=== PATIENT | male | born 2000 | race Caucasian/White ===

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

== ENCOUNTER 2022-03-15 07:29 | Emergency (ER) | payer BC, OTHER ==
[~2022-03-15] VITALS: Ht 180.3 cm; Wt 118.6 kg
[2022-03-15 07:32] VITALS: BP 139/78
[2022-03-15] MEDS ORDERED: amox tr/potassium clavulanate 875/125mg TAB PO ONE (09:25)
[2022-03-15] MEDS ORDERED: ketorolac trometh inj. 60 MG/2 ML VIAL IM ONE (09:25)
[2022-03-15] MEDS ORDERED: IBUP-1986 PO (09:30)
[2022-03-15] MEDS ORDERED: AMOX-117 PO (09:30)
== END 2022-03-15 09:56 | disposition home or self-care (01) ==
LOC: ER 07:29
DX: H65.193 Other acute nonsuppurative otitis media, bilateral (principal); F17.200 Nicotine dependence, unspecified, uncomplicated; I10 Essential (primary) hypertension; F41.9 Anxiety disorder, unspecified; Z79.899 Other long term (current) drug therapy
CPT/HCPCS: 96372; 99283; J1885

== ENCOUNTER 2022-07-03 13:33 | Emergency (ER) | payer OTHER ==
[~2022-07-03] VITALS: Ht 182.9 cm; Wt 128.4 kg
[~2022-07-03 13:33] MED LIST changes: +IBUP-1986 PO
[2022-07-03 14:11] LABS: BASOPHILS % (AUTO) 0.6 % (0-1); EOSINOPHILS % (AUTO) 0.1 % (0-6); HEMATOCRIT 50.1 % (42.0-52.0); HEMOGLOBIN 17.5 g/dl (14.0-17.9); LYMPHOCYTES # (AUTO) 1.9 X10'3 (1.1-4.8); LYMPHOCYTES % (AUTO) 40.7 % (21-51); MEAN CORPUSCULAR HEMOGLOBIN 30.1 PG (27.0-31.0); MEAN CORPUSCULAR VOLUME 85.9 FL (78-98); MEAN PLATELET VOLUME 7.5 FL (7.4-10.4); MONOCYTES # (AUTO) 0.7 X10'3 (0-0.9); MONOCYTES % (AUTO) 14.4 % (2-12); NEUTROPHILS % (AUTO) 44.2 % (42-75); PLATELET COUNT 207 X10'3 (140-440); RED BLOOD COUNT 5.83 X10'6 (4.70-6.10); RED CELL DISTRIBUTION WIDTH 13.2 % (11.5-14.5); WHITE BLOOD COUNT 4.6 X10'3 (4.5-11.0)
[2022-07-03 14:14] LABS: CLARITY,URINE CLEAR (Clear); COLOR,URINE YELLOW (Yellow); GLUCOSE, URINE NEGATIVE (Neg); KETONES,URINE 15 mg/dl (Neg); LEUKOCYTE ESTERASE ,URINE NEGATIVE (Neg); NITRITES, URINE NEGATIVE (Neg); OCCULT BLOOD,URINE MODERATE (Neg); PROTEIN,URINE TRACE mg/dl (Neg); UROBILINOGEN,URINE 0.2 E.U/dL (0.2-1.0)
[2022-07-03 14:18] LABS: UA COLLECTION TYPE CLN CATCH MIDSTREAM
[2022-07-03 14:20] LABS: BACTERIA,URINE 1+ /HPF (Neg); MUCUS STRANDS MODERATE /LPF (Neg); SQUAMOUS EPITHELIAL CELL,UR FEW /LPF (FEW); WBC,URINE 0-4 /HPF (0-4)
[2022-07-03 14:21] LABS: ALANINE AMINOTRANSFERASE 146 U/L (12-78); ALBUMIN 4.7 G/DL (3.4-5.0); ALBUMIN/GLOBULIN RATIO 1.4 (1.1-1.5); ALKALINE PHOSPHATASE 76 IU/L (20-180); ANION GAP 8 (8-16); ASPARTATE AMINO TRANSFERASE 71 U/L (10-37); BILIRUBIN,TOTAL 0.6 MG/DL (0.1-1.0); BLOOD UREA NITROGEN 8 MG/DL (7-18); BUN/CREATININE RATIO 8.2 (10.0-20.0); CALCIUM 9.2 MG/DL (8.5-10.1); CHLORIDE 102 MMOL/L (99-107); CREATININE 0.97 MG/DL (0.60-1.10); GLUCOSE 86 MG/DL (70-104); LIPASE 920 U/L (73-393); POTASSIUM 3.7 MMOL/L (3.5-5.1); SODIUM 138 MMOL/L (135-145); TOTAL CARBON DIOXIDE 28.5 MMOL/L (24-32); TOTAL PROTEIN 8.1 G/DL (6.4-8.2); eGFR > 90 ML/MIN
[2022-07-03] MEDS ORDERED: normal saline 1000ml 1,000 ML IV ONE ×2 (14:55→16:05)
[2022-07-03] MEDS ORDERED: ondansetron/PF 4mg/2ml inj IV ONE (14:55)
[2022-07-03 16:12] VITALS: BP 131/71
[2022-07-03] MEDS ORDERED: ONDA4TAB12 PO (18:29)
[2022-07-03 18:55] LABS: MAGNESIUM 2.2 MG/DL (1.5-2.4)
[2022-07-03 19:01] LABS: ETHANOL < 0.010 GM/DL (0.0-0.010)
== END 2022-07-03 18:59 | disposition home or self-care (01) ==
LOC: ER 13:33
DX: A08.4 Viral intestinal infection, unspecified (principal); R74.8 Abnormal levels of other serum enzymes; I10 Essential (primary) hypertension; F41.9 Anxiety disorder, unspecified; Z79.899 Other long term (current) drug therapy
CPT/HCPCS: 36415; 76700; 80053; 80320; 81001; 83690; 83735; 85025; 96361; 96374; 99285; J2405; J7030; A6446

== ENCOUNTER 2023-08-06 11:42 | Emergency (ER) | payer OTHER ==
[~2023-08-06] VITALS: Ht 180.3 cm; Wt 152.3 kg
[~2023-08-06 11:42] MED LIST changes: +ONDA4TAB12 PO
[2023-08-06] MEDS ORDERED: ibup (15:25)
[2023-08-06] MEDS ORDERED: IBUP-1984 PO (15:25)
[2023-08-06] MEDS: ibuprofen 200mg tablet PO ONE (15:54)
[2023-08-06 16:02] VITALS: BP 148/78; PULSE 82; RESP 16; TEMP 98; O2SAT 98
== END 2023-08-06 16:06 | disposition home or self-care (01) ==
LOC: ER 11:43
DX: S93.401A Sprain of unspecified ligament of right ankle, initial encounter (principal); I10 Essential (primary) hypertension; Z79.1 Long term (current) use of non-steroidal anti-inflammatories (NSAID); Z79.899 Other long term (current) drug therapy; Z98.890 Other specified postprocedural states; X58.XXXA Exposure to other specified factors, initial encounter; Y93.89 Activity, other specified; Y92.89 Other specified places as the place of occurrence of the external cause; Y99.8 Other external cause status
CPT/HCPCS: 73610; 99283; A6449